=== PATIENT | male | born 1965 | race Caucasian/White ===

== ENCOUNTER 2017-06-18 15:40 | Outpatient (CLI) | payer OTHER | END 2017-06-18 15:41 | disposition home or self-care (01) | LOC: DTY/OP 15:40 | PROVIDERS: ATTEND Family Medicine | DX: R63.4 Abnormal weight loss (principal) | CPT/HCPCS: 97802 ==

== ENCOUNTER 2018-02-24 07:38 | Outpatient (CLI) | payer OTHER ==
[2018-02-24] MEDS ORDERED: Iopamidol 370 76% 100 ML VIAL ONE (09:00)
--- NOTE | 2018-02-24 09:58 | CT ---
CONTRAST ENHANCED CT IMAGES ABDOMEN AND PELVIS: History: 52-year-old male with history of pancreatic cancer. Previous history of Whipple's procedure. 157.0 an d C25.0 Comparison: 02-04-17 FINDINGS: Pre and post contrast enhanced CT images of the abdomen and pelvis obtained after the administration of IV and oral contrast. The lung bases are unremarkable. No evidence of free intraperitoneal air is seen. The liver and spleen are unremarkable. The gallbladder has been surgically removed. The pancreatic he ad has been dissection. Post-surgical changes compatible with the patient's known Whipple procedure s een. Again, small umbilical hernia noted on the previous CT is seen, unchanged. There is development of a second right paramedian supraumbilical hernia. This was not present on the patient's previous CT from one year earlier but has developed in the inte rim on Image 40. A loop of small bowel does pass through it, however, no definite evidence of bowel o bstruction is seen proximal to it. The spleen is unremarkable. Adrenal glands are unremarkable. Left renal cortical cysts again seen. Th ere also appears to be a tiny cortical cyst in the lower pole of the right kidney. No evidence of periaortic lymphadenopathy is seen. No evidence of pelvic lymphadenopathy or mass is seen. Osseous structures are intact. IMPRESSION: 1. Stable post-surgical changes. 2. Newly developed small supraumbilical hernia. POS: [facility]
== END 2018-02-24 07:39 | disposition home or self-care (01) ==
LOC: SCSCT 07:38
PROVIDERS: ATTEND Internal Medicine Hematology & Oncology
DX: C25.0 Malignant neoplasm of head of pancreas (principal); K42.9 Umbilical hernia without obstruction or gangrene; Z98.890 Other specified postprocedural states
CPT/HCPCS: 74177

== ENCOUNTER 2019-01-05 07:25 | Outpatient (CLI) | payer OTHER ==
--- NOTE | 2019-01-05 08:52 | CT ---
EXAM: CT ABDOMEN AND PELVIS HISTORY: Pancreatic cancer. Status post procedure. COMPARISON: 02-19, 02/24/2018 Procedure: Multiple contiguous axial images were obtained and a CT of the abdomen and pelvis with IV contrast. C oronal reformats were performed. FINDINGS: Lower Chest: within normal limits. Vessels: Normal caliber aorta. Stable stranding at the celiac access. Heart: Normal heart size. No pericardial fluid. Abdomen: Portal vein:Patent Gallbladder: Surgically absent Liver: Persistent hypoattenuation of the liver due to hepatic steatosis. No intrahepatic masses. Pancreas: Resection of the pancreatic head, compatible with patient's history. The remainder the panc reatic parenchyma has appropriate attenuation and enhancement. Spleen: within normal limits. Adrenals: within normal limits. Kidneys: Symmetric enhancement. No obstructive uropathy. Stable hypodensities in the left renal osei x. Largest hypodensity measures 2.0 x 1.9 cm and is compatible with a upper pole cyst in the left kidney. Nonobstructing calculus in the lower pole of the left kidney. Peritoneum: No ascites or free air, no fluid collection. Bowel: Normal gastric mucosa. No evidence of small bowel obstruction. Ileocecal junction is normal. U nremarkable colon. Normal caliber appendix. Mesentery and Retroperitoneum: No enlarged mesenteric or retroperitoneal lymph nodes. Abdominal Wall: Dehiscent with questionable bowel herniation of a segment of small bowel at the level of the umbilicus. No associated obstruction. Pelvis: Reproductive Organs: No pelvic masses. Pelvis: within normal limits. Bladder: within normal limits. Bones: within normal limits. IMPRESSION: 1. Hepatic steatosis. 2. Stable linear densities adjacent to the celiac access. 3. Stable left renal cyst. 4. Stable small ventral bowel hernia. 5. Stable postoperative changes. No evidence of metastases.
== END 2019-01-05 07:26 | disposition home or self-care (01) ==
LOC: SCSCT 07:25
PROVIDERS: ATTEND Internal Medicine Hematology & Oncology
DX: C25.0 Malignant neoplasm of head of pancreas (principal); N28.1 Cyst of kidney, acquired; Z98.890 Other specified postprocedural states; K76.0 Fatty (change of) liver, not elsewhere classified; K43.9 Ventral hernia without obstruction or gangrene
CPT/HCPCS: 74177